=== PATIENT | female | born 1950 | race Asian ===

== ENCOUNTER 2017-09-09 21:00 | Inpatient (IN) | payer MEDICARE ==
[2017-09-09 22:59] VITALS: BP 120/77
[2017-09-09] MEDS ORDERED: Magnesium Hydroxide (MOM) 30 mL UDC PO PRN (23:02)
--- NOTE | 2017-09-10 14:51 | History & Physical ---
ADMIT DATE: 09/10/2017 REQUESTING PHYSICIAN: Dr. Job Acuna. PRESENTING COMPLAINT: "I don't want any medication." HISTORY SOURCE: Reviewing the chart, talking to the staff. The patient is extremely noncompliant. The exam is limited. HISTORY OF PRESENT ILLNESS: A 67-year-old [place] female admitted at [facility] from [facility] when patient presented to the Emergency Room, refusing to take medications and agitation. The patient was transferred for further management. PAST MEDICAL HISTORY: Reviewing the chart; hypertension, hyperlipidemia, DJD and psychotic disorder. MEDICATIONS: Currently she is on Tylenol, lorazepam, milk of magnesia, Zyprexa, and Ambien. ALLERGIES: The patient is not allergic to medications. SOCIAL HISTORY: The patient lives with the family. The patient has no smoking cigarette, alcohol or drug use. FAMILY HISTORY: Unavailable. REVIEW OF SYSTEMS: Unable to obtain due to patient being noncompliant. PHYSICAL EXAMINATION: GENERAL: The patient is alert, awake, not cooperative. VITAL SIGNS: Temperature 97.8, pulse 71, respiratory rate 18, blood pressure 102/67. HEENT: Normocephalic, atraumatic. Extraocular muscles intact. No facial asymmetry. Tongue was pink. NECK: Supple, no JVD, no lymphadenopathy. HEART: Regular. No murmur. CHEST: Lung equal in expansion, no wheezing, no crackles. ABDOMEN: Soft. No guarding, no rigidity. Bowel sounds are present. EXTREMITIES: No edema, no cyanosis. NEUROLOGIC: Unable to perform complete neurological examination, but the patient was ambulatory, so considered as nonfocal. AVAILABLE DIAGNOSTIC DATA: Has been reviewed. CLINICAL IMPRESSION: 1. Hypertension. 2. Hyperlipidemia. 3. Degenerative joint disease. 4. Hypercalcemia. 5. Hypoproteinemia. 6. Psychotic disorder. PLAN: In order to evaluate further her abnormal labs, will proceed with CMP and if persistent then will pursue further for further evaluation of her abnormal lab. Meanwhile, psychiatric evaluation and management deferred to psychiatrist. We will monitor the patient's blood pressure at this time and we will continue to follow this patient during her stay in the hospital. JOB# [id number]
--- NOTE | 2017-09-11 00:49 | Psychosocial Evaluation ---
DATE OF SERVICE: 09/10/2017 The patient was seen and evaluated. Seen and chart reviewed. This is initial psychiatric evaluation. Dr. Sullivan Covering for Dr. Acuna. IDENTIFYING DATA: A 67-year-old female. The patient presents here on a 51:50, gravely disabled. The patient was placed on hold from [facility], presented very agitated, disorganized and irrational. She had not been sleeping and was unable to formulate much more information beyond that as she has been refusing medications and disengage in her treatment. HISTORY OF PRESENT ILLNESS: The patient is a 67-year-old female with unknown prior psychiatric intervention, who was admitted here as noted above. Today on [id number] evaluation, the patient is very dismissive in the interview. She reports "I am not sure why I am here", just sleeping alone, eating and attempting to validate her emotions, coming back later as she was in her room and to initiate conversation. She continues to be extremely dismissive and lot about her conversation, very disengaged and distraught in her evaluation. Therefore, a very poor historian and minimizing. PAST PSYCHIATRIC HISTORY: History of schizophrenia. As documented from the ER [facility] [place]. CURRENT MEDICAL PROBLEMS: Include hypertension, hyperlipidemia, history of chest pain. HOME MEDICATIONS: Include aspirin, atorvastatin, losartan, megestrol, memantine, mirtazapine 50 mg and olanzapine 5 mg p.o. b.i.d. ALLERGIES TO MEDICATIONS: NKDA. CURRENT MEDICAL PROBLEMS: As noted above. LEGAL HISTORY: None. FAMILY PSYCHIATRIC HISTORY: None. PSYCHOSOCIAL ENVIRONMENTAL HISTORY: Very limited, unable to give much information beyond the patient as she continues to refuse. Labs from the outside hospital reviewed. History of alcohol and drug use denies. PSYCHOSOCIAL DEVELOPMENTAL HISTORY: Unknown. Physical pain 0-10. ACUTE COGNITIVE IMPAIRMENT: Severe. MENTAL STATUS EXAMINATION: Irritable, easily agitated with poor eye contact, disengaged, despondent, irritable, agitated, poor insight, judgment and impulse control. PRIMARY DIAGNOSES: Schizophrenia by history. SECONDARY DIAGNOSES: None. Medical diagnosis as noted above. PHYSICAL EXAMINATION: Pending by medical doctor. ASSESSMENT: The patient is a 67-year-old female with a previous history of schizophrenia as noted by documentation by [facility] who presents very despondent, disengaged, irritable, easily agitated, and did engage in her interview and not giving much information. PLAN: We will continue monitoring, evaluating her collateral baseline information. In the meantime, we will continue initiating back to Zyprexa 5 mg to target the patient's history of disorganized thought process. Estimated stay between 5-10 days. DISCHARGE CRITERIA: The patient to demonstrate euthymic mood, no suicidal or homicidal ideation, good psychiatric followup, good peer interaction. [facility]# [id number]
--- NOTE | 2017-09-11 09:28 | General Progress Note ---
Subjective - Review of Systems Subjective: Patient is seen and examined. No new complaints. Patient is refusing blood draw. Objective - Physical Exam Vitals and I&O: Vital Signs Temp 98.0 F 09/11/17 06:22 Pulse 69 09/11/17 06:22 Resp 20 09/11/17 06:22 BP 96/58 09/11/17 06:22 Pulse Ox 97 09/11/17 06:22 Intake & Output 09/10/17 09/11/17 09/11/17 18:59 06:59 18:59 Intake Total 120 300 Balance 120 300 Intake: Oral 120 300 Other: # Voids 1 0 # Bowel Movements 0 Active Medications: Current Medications Acetaminophen (Tylenol) 650 mg PO Q4HR PRN PRN Reason: Mild Pain / Temp above 100 Stop: 11/08/17 23:01 Lorazepam (Ativan) 0.5 mg PO Q4HR PRN; Protocol PRN Reason: Agitation Stop: 10/09/17 23:01 Magnesium Hydroxide (Milk Of Magnesia) 30 ml PO HS PRN PRN Reason: Constipation Olanzapine (Zyprexa) 5 mg PO HS RUBIN PRN Reason: Protocol Stop: 11/09/17 20:59 Last Admin: 09/10/17 22:10 Dose: Not Given Zolpidem Tartrate (Ambien) 5 mg PO HS PRN PRN Reason: Insomnia Stop: 11/08/17 23:01 General: Alert, No acute distress HEENT: Atraumatic, PERRLA, EOMI, Mucous membr. moist/pink Neck: Supple, JVD, +2 carotid pulse wo bruit Cardiovascular: Regular rate, Normal S1, Normal S2 Lungs: Clear to auscultation, Normal air movement Abdomen: Bowel sounds, Soft Extremities: Pulses (+1.) Neurological: Normal gait, Normal tone Assessment/Plan - Assessment Assessment: Hypercalcemia. Hyperprotenemia. Hx oh HTN remain normotensive. Psych disorder DJD. - Plan Plan: Mavis recommendation based on lab tests. Psych meds. Psych follow up. General nursing care. Fall precautions. Continue current care. Discussed with staff.
--- NOTE | 2017-09-12 00:08 | Progress Notes ---
DATE: 09/11/2017 SUBJECTIVE: The patient is currently in the hospital and placed on a hold from [facility], agitated, disorganized, irrational, not sleeping, refusing her medications, has no idea why she is here. She knows the year and the month. She is not quite sure about the day or the week. The patient was seen by Dr. Sullivan over the weekend, noted to be dismissive, disengaged. Apparently, she has a history of schizophrenia. The patient guarded on exam. States she wants to go home immediately and officially questioning me now. ASSESSMENT: The patient is confused, disoriented, possible history of schizophrenia, seems somewhat paranoid and suspicious, refusing care and treatment. PLAN: Medications were reviewed. We will continue to encourage medication compliance. The patient has been refusing treatment. She may need to have a Riese petition filed. We will continue to monitor. We will initiate a 14-day hold for great disability. [facility]# [id number]
--- NOTE | 2017-09-13 03:27 | Progress Notes ---
DATE: 09/11/2017 SUBJECTIVE: The patient placed on a hold. Noted to be agitated, disorganized, irrational, not sleeping. Family could not care for her. The patient is dismissive during my interview, not speaking with me. States that she does not know why she is here, but she knows the month and the year. She remains symptomatic, still mumbling to self at times. Concerns for medication compliance. A Riese petition may need to be filed. We are continuing to try to encourage medication compliance, withdrawn, isolative in her room. ASSESSMENT: The patient remains symptomatic, withdrawn, remains confused, somewhat paranoid. PLAN: We will continue to monitor, encourage medication compliance. We are also trying to increase collateral. JOB# [id number]
[2017-09-13] MEDS: OLANZapine 5 mg Oral Disintegrating Tab PO SCH ×2 (11:33→16:26)
[2017-09-14] MEDS: OLANZapine 5 mg Oral Disintegrating Tab PO SCH ×2 (09:16→16:33)
--- NOTE | 2017-09-14 09:21 | General Progress Note ---
Subjective - Review of Systems Subjective: Patient is seen and examined. Still agitated and not allowing to have blood test. Objective - Physical Exam Vitals and I&O: Vital Signs Temp 97.8 F 09/13/17 06:13 Pulse 66 09/13/17 20:00 Resp 20 09/13/17 20:00 BP 104/60 09/12/17 16:44 Pulse Ox 95 09/12/17 16:44 Intake & Output 09/13/17 09/14/17 09/14/17 18:59 06:59 18:59 Intake Total 700 120 Balance 700 120 Intake: Oral 700 120 Other: # Voids 3 3 # Bowel Movements 1 Active Medications: Current Medications Acetaminophen (Tylenol) 650 mg PO Q4HR PRN PRN Reason: Mild Pain / Temp above 100 Stop: 11/08/17 23:01 Lorazepam (Ativan) 0.5 mg PO Q4HR PRN; Protocol PRN Reason: Agitation Stop: 10/09/17 23:01 Magnesium Hydroxide (Milk Of Magnesia) 30 ml PO HS PRN PRN Reason: Constipation Olanzapine (Zyprexa) 5 mg PO HS RUBIN PRN Reason: Protocol Stop: 11/09/17 20:59 Last Admin: 09/13/17 21:00 Dose: Not Given Olanzapine (Zyprexa Zydis) 5 mg PO BID RUBIN PRN Reason: Protocol Stop: 11/12/17 10:29 Last Admin: 09/14/17 09:16 Dose: Not Given Zolpidem Tartrate (Ambien) 5 mg PO HS PRN PRN Reason: Insomnia Stop: 11/08/17 23:01 General: Alert, No acute distress HEENT: Atraumatic, PERRLA, EOMI, Mucous membr. moist/pink Neck: Supple, JVD, +2 carotid pulse wo bruit Cardiovascular: Regular rate, Normal S1, Normal S2 Lungs: Clear to auscultation, Normal air movement Abdomen: Bowel sounds, Soft Extremities: Pulses (+1.) Neurological: Normal gait, Normal tone Assessment/Plan - Assessment Assessment: Hypercalcemia. Hyperprotenemia. Hx oh HTN remain normotensive. Psych disorder DJD. - Plan Plan: Psych meds. Psych follow up. try to get blood tests so I can give recommendations. General nursing care. Fall precautions. Continue current care. Discussed with staff.
--- NOTE | 2017-09-14 15:20 | Progress Notes ---
DATE: 09/13/2017 PSYCHIATRIC PROGRESS NOTE SUBJECTIVE: Chart reviewed and the patient interviewed. Also discussed the patient's condition with the staff and reviewed records and labs. The patient is still actively hallucinating and actively responding to stimuli. She is arguing with the staff and she is still acting bizarre. The patient also is still disheveled and isolative and she is also at times demanding. During my interview, the patient is talking to herself and personal hygiene is poor. She also did not want to leave her room. When I discussed with her taking medications she kept arguing that she does not need any medicine and she does not want to take medications, but at the end, she said that she will think about taking it. ASSESSMENT: The patient is still psychotic and agitated. TREATMENT PLAN: We will continue monitoring her behavior and her condition closely. Also, we will increase Zyprexa to 5 mg twice a day and will change Zyprexa to Zyprexa Zydis. Hopefully, the patient will be more compliant with taking the Zydis since it is slightly easier to swallow. ESTIMATED LENGTH OF STAY: 2-4 days REASON FOR CONTINUED HOSPITALIZATION: The patient is still agitated and psychotic. JOB# [id number]
--- NOTE | 2017-09-15 00:37 | Progress Notes ---
DATE: SUBJECTIVE: Chart reviewed and the patient interviewed. Also discussed the patient's condition with the staff and reviewed records and labs. The patient seems to be calmer than before, although she is still refusing to take medications. Slightly easier to redirect her. The patient also denies any intention to harm herself or others. She also has been cooperative with her treatment and accepted that she does not want to take any medicine, afraid of any side effects. Otherwise, the patient is showing fair hygiene. ASSESSMENT: The patient is less irritable and less agitated. TREATMENT PLAN: Planning to have family meeting with the patient's family and will continue to follow up from that point. At this time, the patient does not have enough criteria to have her started on Riese process. JOB# [id number]
[2017-09-15] MEDS: OLANZapine 5 mg Oral Disintegrating Tab PO SCH (08:06)
--- NOTE | 2017-09-15 09:39 | General Progress Note ---
Subjective - Review of Systems Subjective: Patient is seen and examined. No new events. Objective - Physical Exam Vitals and I&O: Vital Signs Temp 97.8 F 09/13/17 06:13 Pulse 63 09/14/17 12:32 Resp 20 09/14/17 20:00 BP 104/60 09/12/17 16:44 Pulse Ox 95 09/12/17 16:44 Intake & Output 09/14/17 09/15/17 09/15/17 18:59 06:59 18:59 Intake Total 1200 Balance 1200 Intake: Oral 1200 Other: # Bowel Movements 1 Active Medications: Current Medications Acetaminophen (Tylenol) 650 mg PO Q4HR PRN PRN Reason: Mild Pain / Temp above 100 Stop: 11/08/17 23:01 Lorazepam (Ativan) 0.5 mg PO Q4HR PRN; Protocol PRN Reason: Agitation Stop: 10/09/17 23:01 Magnesium Hydroxide (Milk Of Magnesia) 30 ml PO HS PRN PRN Reason: Constipation Olanzapine (Zyprexa Zydis) 5 mg PO BID RUBIN PRN Reason: Protocol Stop: 11/12/17 10:29 Last Admin: 09/15/17 08:06 Dose: Not Given Zolpidem Tartrate (Ambien) 5 mg PO HS PRN PRN Reason: Insomnia Stop: 11/08/17 23:01 General: Alert, No acute distress HEENT: Atraumatic, PERRLA, EOMI, Mucous membr. moist/pink Neck: Supple, JVD, +2 carotid pulse wo bruit Cardiovascular: Regular rate, Normal S1, Normal S2 Lungs: Clear to auscultation, Normal air movement Abdomen: Bowel sounds, Soft Extremities: Pulses (+1.) Neurological: Normal gait, Normal tone Assessment/Plan - Assessment Assessment: Hypercalcemia. Hyperprotenemia. Hx oh HTN remain normotensive. Psych disorder DJD. - Plan Plan: Psych meds. Psych follow up. General nursing care. Fall precautions. Continue current care. Discussed with staff. Nutritional Asmnt/Malnutr-PDOC - Dietary Evaluation Malnutrition Findings (Please click <Entered> for more info): Nutritional Asmnt/Malnutrition Start: 09/14/17 16: 00 Text: Status: Complete Freq: Document 09/14/17 16:00 JESSIE (Rec: 09/14/17 16:09 NATALIIA [email or web address]) Nutritional Asmnt/Malnutrition Patient General Information Nutritional Screening Moderate Risk Diagnosis psychosis NOS Pertinent Medical Hx/Surgical Hx HTN, hyperlipidemia, psychotic disorder, DJD Subjective Information Pt seen sitting on bed at the time of visit, refusing talk to a dietitian. Spoke with RN, pt would eat if not pushing her. Pt likes juices. Current Diet Order/ Nutrition Support BRENDA Pertinent Medications zyprexa Pertinent Labs no labs Nutritional Hx/Data Height 1.6 m Height (Calculated Centimeters) 160.0 Current Weight (lbs) 75.296 kg Weight (Calculated Kilograms) 75.3 Weight (Calculated Grams) 25590.3 Erwin Body Weight 115 % Erwin Body Weight 139 Body Mass Index (BMI) 29.4 Weight Status Overweight GI Symptoms GI Symptoms None Last BM 09/13 Difficult in: None Skin Integrity/Comment: intact Current %PO Fair (50-74%) Estimated Nutritional Goals BEE in Kcals: Using Current wt Calories/Kcals/Kg 25-30 Kcals Calculated [id number] Protein: Using Current wt Protein g/k Protein Calculated 73 Fluid: ml 1825-2190ml (1ml/kcal) Nutritional Problem No current Nutrition Prob Problem N/A Malnutrition Alert Protein-Calorie Malnutrition N/A Is there a minimum of two criteria No selected? Query Text:Check all the applicable criteria. A minimum of two criteria are recommended for diagnosis of either severe or non-severe malnutrition. Intervention/Recommendation Comments 1. Continue with current diet as ordered. 2. Monitor PO intake, wt, labs and skin integrity 3. F/U as low risk in 7 days, 10/01 Expected Outcomes/Goals Expected Outcomes/Goals 1. PO intake to meet at least 75% of nutritional needs. 2. Wt stability, skin to remain intact
== END 2017-09-15 13:15 | disposition home or self-care (01) | DRG 885 ==
LOC: GERO 21:00
PROVIDERS: ADMIT Psychiatry & Neurology Psychiatry; ATTEND Psychiatry & Neurology Psychiatry
DX: F20.9 Schizophrenia, unspecified (principal); E77.8 Other disorders of glycoprotein metabolism; E78.5 Hyperlipidemia, unspecified; I10 Essential (primary) hypertension; M19.90 Unspecified osteoarthritis, unspecified site; E83.52 Hypercalcemia; F29 Unspecified psychosis not due to a substance or known physiological condition
CPT/HCPCS: J7051